=== PATIENT | female | born 1980 | race American Indian/Alaskan Native ===

== ENCOUNTER 2016-09-27 08:24 | Outpatient (CLI) | payer MEDICARE ==
[2016-09-27 10:36] LABS: Blood Urea Nitrogen 8 mg/dL (7-17)
--- NOTE | 2016-09-28 09:08 | Magnetic Resonance Report ---
MRI BRAIN WITHOUT CONTRAST: 09/27/16 08:24:00 CLINICAL: MS and headache. TECHNIQUE: Axial diffusion, T1, T2, FLAIR, gradient echo T2*, and sagittal T1 sequences without contrast on a 1.5 Kerri magnet. She is scheduled to return in 2 days for a contrast study. FINDINGS: The ventricles and sulci are large for age. No restricted diffusion. Numerous bilateral multilobar lesions are hyperintense on T2 and FLAIR and involve arndt matter, white matter, basal ganglia, splenium of the corpus callosum, brainstem and cerebellum. Most of the lesions have associated vasogenic edema and the largest involved area is in the posterior right parietal lobe. Almost the entire splenium of the corpus callosum is involved. A large lesion in the right thalamus extends into the right midbrain and stef. No evidence of hemorrhage. The sella turcica is filled with CSF and displaces a small pituitary. Intact vascular flow voids. Partial opacification of bilateral ethmoid and right maxillary sinuses. Multiple small cysts of the nasopharynx. The orbits, and soft tissues are normal. Normal calvarium and skull base. IMPRESSION: Numerous lesions involving the cerebrum, basal ganglia, corpus callosum, brainstem and cerebellum. Although these may all be MS lesions, metastatic tumor is a consideration. A contrast brain MRI will be helpful in better depicting the size, character and number of lesions.
== END 2016-09-27 08:25 | disposition home or self-care (01) ==
LOC: MRI 08:24
PROVIDERS: ATTEND Psychiatry & Neurology Neurology
DX: G35 Multiple sclerosis (principal); G93.89 Other specified disorders of brain; J39.2 Other diseases of pharynx; J32.0 Chronic maxillary sinusitis; J32.2 Chronic ethmoidal sinusitis
CPT/HCPCS: 36415; 70551; 82565; 84520

== ENCOUNTER 2016-09-30 09:12 | Outpatient (CLI) | payer MEDICARE ==
--- NOTE | 2016-09-30 12:25 | Magnetic Resonance Report ---
MRI BRAIN WITH CONTRAST: 09/30/16 CLINICAL: Multiple sclerosis. COMPARISON: MRI brain without contrast 09/27/16 TECHNIQUE: Coronal and axial postcontrast T1 sequences on a 1.5 Kerri magnet. 15.0 cc of Multihance was injected intravenously and consent was obtained prior to the administration of the contrast. FINDINGS: Too numerous to count ring-enhancing lesions involving the bilateral cerebrum, bilateral cerebellum, splenium of the corpus callosum, right basal ganglia, right thalamus, brainstem and cerebellum. Lesions correlate with areas of vasogenic edema and T2 hyperintensity on T2 and FLAIR sequences on the noncontrast study. Many of the lesions are peripheral and involved arndt matter in the cerebrum and cerebellum. The largest lesion is in the vermis and measures 2.9 x 2.5 cm. The enhancing lesion in the splenium of the corpus callosum crosses midline. Enhancing lesions in the brainstem or in the midbrain. IMPRESSION: Too numerous to count ring-enhancing lesions throughout the brain and involving the mainstem. The peripheral location of many of the lesions in the cerebrum is not typical of multiple sclerosis. In fact, there are no typical pericallosal lesions known as Hemphill fingers. Therefore, metastatic tumor is a high consideration. Consider further imaging with bilateral mammography and CT chest abdomen and pelvis to exclude a primary tumor with extensive brain metastasis.
== END 2016-09-30 09:13 | disposition home or self-care (01) ==
LOC: MRI 09:12
PROVIDERS: ATTEND Psychiatry & Neurology Neurology
DX: G35 Multiple sclerosis (principal); R51 Headache; G93.89 Other specified disorders of brain
CPT/HCPCS: 70552; A9577